=== PATIENT | female | born 1980 | race African-American/Black ===

== ENCOUNTER 2017-10-31 21:29 | Emergency (ER) | payer OTHER ==
[2017-10-31 21:46] VITALS: BP 113/69; PULSE 90; TEMP 98.4; BMI 35.4
--- NOTE | 2017-10-31 23:40 | PDOC ---
History of Present Illness - General Chief Complaint: Allergic Reaction Stated Complaint: MEDICATION REACTION Time Seen by Provider: 10/31/17 21:31 - History of Present Illness Initial Comments: This 36-year-old woman with a history of anemia and multiple episodes of perianal abscess had incision and drainage of left buttock abscess elsewhere ( ED of [facility]) 2 days ago. She was started on Bactrim DS after procedure. She received 1 dose of this evening of 10/29 and took 2 more doses after this (yesterday and today). Yesterday, she noted pain in her bilateral forearms and legs without history of trauma. She was seen again in the ED at [facility] yesterday after onset of the extremity pain. She was told to stop the Bactrim and clindamycin was prescribed, as well as ibuprofen for extremity pain. She has had no rash/pruritus/lip or tongue swelling. She denies fever/chills. No previous history of Bactrim ingestion or ALLERGY/side effect from any other antibiotic. Patient states that she has had 5 previous episodes of perianal abscess including 2 which required admission for IV antibiotics. She is unsure whether she has had infection or colonization with resistant organisms Past History - Past Medical History Allergies/Adverse Reactions: Allergies Allergy/AdvReac Type Severity Reaction Status Date / Time No Known Allergies Allergy Verified 01/07/16 22:05 Home Medications: Ambulatory Orders No Home Medications 0 dose .ROUTE UTDICT 03/15/12 Anemia: Yes COPD: No - Reproductive History (#): 5 Para: 3 - Suicide/Smoking/Psychosocial Hx Smoking Status: No Smoking History: Never smoked Have you smoked in the past 12 months: No Number of Cigarettes Smoked Daily: 0 Information on smoking cessation initiated: No Hx Alcohol Use: No Drug/Substance Use Hx: No Substance Use Type: None Review of Systems - Review of Systems Able to Perform ROS?: Yes Comments:: 12 point review of systems is negative except for what is noted in the history of present illness *Physical Exam - Vital Signs Last Vital Signs Temp Pulse Resp BP Pulse Ox 98.4 F 90 14 113/69 100 10/31/17 21:41 10/31/17 21:41 10/31/17 21:41 10/31/17 21:41 10/31/17 21:41 - Physical Exam Comments: GENERAL: Adult female, alert and oriented 3, in no acute distress HEAD: Normal with no signs of trauma. EYES: PERRLA, EOMI, sclera anicteric, conjunctiva clear. ENT: No lip/tongue/uvular edema NECK: Normal range of motion, supple without stridor LUNGS: Clear auscultation without wheezing or crackles. EXTREMITIES: No edema/deformity/rash evident; no erythema or tenderness of forearms or legs Area of incision and drainage inspected: Mild induration/mild tenderness without erythema/fluctuance or drainage Packing in place within the wound; no evidence of new abscess NEUROLOGICAL: Cranial nerves II through XII grossly intact. Normal speech. No focal neurological deficits. Medical Decision Making - Medical Decision Making This 36-year-old woman presents with a few day history of extremity pain after 3 doses of Bactrim DS(given after incision and drainage of perineal abscess). No evidence of rash/angioedema/airway compromise. Patient has no pruritus and no edema at the area of pain. Exam reveals no tenderness or rash of the painful extremity. Patient presented to the ER in order to receive a second opinion about starting clindamycin. She inquired whether there was anything that she could do to resolve the pain quickly. Patient was informed that she had an adverse effect to the Bactrim that was not ALLERGIC. The pain should subside once she stops taking the antibiotic. There should not be a problem in starting a new antibiotic. Meanwhile, she should return her or see her doctor if she continues to have pain or notices any swelling/redness/open wounds of the area. She can take ibuprofen as needed for pain *DC/Admit/Observation/Transfer Diagnosis at time of Disposition: Medication adverse effect Qualifiers: Encounter type: initial encounter Qualified Code(s): T88.7XXA - Unspecified adverse effect of drug or medicament, initial encounter - Discharge Dispostion Disposition: HOME Condition at time of disposition: Stable - Referrals - Patient Instructions Printed Discharge Instructions: DI for Adverse Drug Reaction -- Other Additional Instructions: Stop trimethoprim/sulfamethoxazole as previously advised You can take ibuprofen as needed for body aches as advised Start clindamycin as prescribed Remove packing from wound tomorrow and follow-up with surgical clinic as arranged Return to ER if you have persistent severe symptoms - Post Discharge Activity
== END 2017-10-31 23:42 | disposition home or self-care (01) ==
LOC: FER 21:29
DX: T88.7XXA Unspecified adverse effect of drug or medicament, initial encounter (principal); X58.XXXA Exposure to other specified factors, initial encounter; Y93.89 Activity, other specified
CPT/HCPCS: 99282-25

== ENCOUNTER 2020-05-06 10:26 | Day surgery (SDC) | payer OTHER ==
[2020-05-05 16:27] VITALS: BMI 25.7
[2020-05-06] MEDS ORDERED: MIDAZOLAM HCL 2 MG/2 ML SINGLE DOSE VIAL ONE (14:13)
[2020-05-06] MEDS ORDERED: PROPOFOL 20 ML ONE ×3 (14:13)
[2020-05-06] MEDS ORDERED: LIDOCAINE 1%/EPI 1:100000 (20 ML MULTI DOSE VIAL) ONE (14:24)
[2020-05-06] MEDS ORDERED: BUPIVACAINE HCL 100 ML ONE (14:25)
[2020-05-06] MEDS ORDERED: LIDOCAINE 1%/EPI 1:100000 (50 ML MULTI DOSE VIAL) INF ONE (14:48)
[2020-05-06] MEDS ORDERED: BUPIVACAINE HCL/PF 0.5% (5MG/ML) 10 ML VIAL IJ ONE (15:03)
--- NOTE | 2020-05-06 16:09 | OP ---
Operative Note - Note: Operative Date: 05/06/20 Pre-Operative Diagnosis: Left knee internal derangement Operation: Left knee arthroscopy Post-Operative Diagnosis: Same as Pre-op Surgeon: Brooks Ibanez I Securities Analyst: Rajendra Briggs Anesthesiologist/ROTARY SHEAR CUTTER: Petr Zuniga Anesthesia: General Estimated Blood Loss (mls): 5 Operative Report Dictated: Yes
--- NOTE | 2020-05-06 16:09 | SURG ---
Surgery Counseling Services Director Note Counseling Services Director: Rajendra Briggs PA-C Date of Service: 05/06/20 Diagnosis: Left knee derangement Procedure: Left knee arthroscopy I was present for the entirety of the operative procedure. For further detail, please refer to operative report. Visit type - Case Type Case Type: Scheduled - Emergency Emergency Visit: No - New patient This patient is new to me today: Yes Date on this admission: 05/06/20 - Critical Care Critical Care patient: No
[2020-05-06] MEDS ORDERED: ONDANSETRON 4 MG/2 ML VIAL IVPUSH PRN (16:39)
[2020-05-06] MEDS ORDERED: LACTATED RINGERS SOLUTION 1,000 ML IV SCH (16:45)
--- NOTE | 2020-05-06 17:03 | OP ---
DATE OF OPERATION: 05/06/2020 PREOPERATIVE DIAGNOSIS: Torn lateral meniscus left knee and osteoarthritis. POSTOPERATIVE DIAGNOSIS: Torn lateral meniscus left knee and osteoarthritis. SURGEON: Brooks Ibanez MD. ANESTHESIA: General. PROCEDURE: Arthroscopy partial lateral meniscectomy and abrasion chondroplasty. DESCRIPTION OF PROCEDURE: After induction of general anesthesia, the entire leg and knee and thigh were now prepped and draped in a free manner. A superior lateral portal was made through which a cannula was introduced. Two other portal were made over the medial and the lateral aspect of the patella tendon. The arthroscope was introduced from the lateral portal and the inspection started suprapatellar pouch. There was evidence of very severe hypertrophy in the synovium. In the patellofemoral joint, the surface of the patella, mostly in the lateral facet, was the site of very severe down to subchondral bone. The intracondylar groove showed also very deep damage to the cartilage with fissuring and avulsion. The scope was taken to the medial compartment where the inspection showed evidence of fibrillation and damage and thinning of the articular cartilage over the femoral condyle. There was very minimal degenerative shredding of the free border of the medial meniscus. The intracondylar notch, the ACL was found to be intact. Finally, the scope was taken to the lateral compartment, where inspection showed degenerative tearing of the anterior horn of the lateral meniscus. Using the 3rd portal and Mitek bipolar cautery, an extensive synovectomy was done in the suprapatellar pouch. The patella and the intracondylar groove were the site of extensive chondroplasty. Finally, in the lateral compartment, a partial meniscectomy addressing the degenerative tearing in the anterior horn of the lateral meniscus was done. The joint now was irrigated and flushed with normal saline and evacuated from all debris of articular shaving. Hemostasis was obtained. All instruments now were removed, and the portals were closed using interrupted 3-0 nylon. The dressing was applied. The patient tolerated the procedure and left the operating room in excellent condition. Rickie [id number]
[2020-05-06 17:56] VITALS: BP 125/67; PULSE 70; TEMP 97
== END 2020-05-06 16:00 | disposition home or self-care (01) ==
LOC: JASU-SURG 10:26
PROVIDERS: ATTEND Orthopaedic Surgery
PROC: 0SBD4ZZ Excision of Left Knee Joint, Percutaneous Endoscopic Approach (ICD-10-PCS; 2020-05-06)
PROC: 0SQD4ZZ Repair Left Knee Joint, Percutaneous Endoscopic Approach (ICD-10-PCS; principal; 2020-05-06 14:21)
DX: S83.282A Other tear of lateral meniscus, current injury, left knee, initial encounter (principal); X58.XXXA Exposure to other specified factors, initial encounter; Y93.9 Activity, unspecified; Y92.9 Unspecified place or not applicable; Y99.9 Unspecified external cause status; M17.12 Unilateral primary osteoarthritis, left knee
CPT/HCPCS: 81025; 94760